=== PATIENT | female | born 1995 | race Caucasian/White ===

== ENCOUNTER 2016-08-26 14:22 | Emergency (ER) | payer BC ==
[2016-08-26 15:03] VITALS: BP 135/85; RESP 18
[2016-08-26] MEDS ORDERED: ONDANSETRON 4 MG/2 ML VIAL IVP STA (15:11)
[2016-08-26] MEDS ORDERED: SODIUM CHLORIDE 0.9% 1,000 ML IV STA (15:11)
[2016-08-26] MEDS ORDERED: SODIUM CHLORIDE 0.9% 2,000 ML IV STA (15:11)
[2016-08-26 15:42] LABS: Basophils % (A) 0 %; CH 30.2; CHCM 35.5; Eosinophils % (A) 0 %; HCT 38.6 % (34.0-46.0); HDW 2.75; HGB 13.4 gm/dL (11.4-16.0); Luc # (Auto) 0.11; Luc % (Auto) 1; Lymphocytes # (A) 1.3 k/uL (1.0-4.8); Lymphocytes % (A) 8 %; MCH 29.8 pg (25.0-35.0); MCHC 34.8 g/dL (31.0-37.0); MCV 85.4 fL (80.0-100.0); Mean Platelet Volume 6.9; Monocytes # (A) 0.6 k/uL (0-1.0); Monocytes % (A) 4 %; Neutrophils # (A) 14.6 k/uL (1.3-7.7); Neutrophils % (A) 88 %; RBC 4.51 m/uL (3.80-5.40); RDW 12.9 % (11.5-15.5); WBC 16.6 k/uL (3.8-10.6); WBC (Perox) 15.82
[2016-08-26 15:50] LABS: Appearance,Urine Clear (Clear); Bacteria,Urine Rare /hpf; Bilirubin,Urine Negative (Negative); Glucose,Urine (UA) Negative (Negative); Ketones,Urine 3+ (Negative); Leukocyte Esterase,Urine Negative (Negative); Mucus,Urine Many /hpf; Nitrite,Urine Negative (Negative); PH, Urine 6.5 (5.0-8.0); Particle Count 11282; Protein,Urine 1+ (Negative); Specific Gravity,Urine 1.026 (1.001-1.035); Squamous Epithelial Cell,Urine 1 /hpf (0-4); UA Billing (MACRO vs. MICRO) MICRO; WBC,Urine 1 /hpf (0-5)
[2016-08-26 15:52] LABS: ALT 51 U/L (9-52); AST 27 U/L (14-36); Alcohol <10 mg/dL; Alkaline Phosphatase 81 U/L (38-126); Amylase 34 U/L (30-110); Anion Gap 14 mmol/L; Blood Urea Nitrogen 12 mg/dL (7-17); Calcium 9.5 mg/dL (8.4-10.2); Carbon Dioxide 20 mmol/L (22-30); Chloride 109 mmol/L (98-107); Glucose 102 mg/dL (74-99); Non-African American GFR(MDRD) >60 (>60 ml/min/1.73 sqM); Sodium 143 mmol/L (137-145); Total Protein 7.2 g/dL (6.3-8.2)
--- NOTE | 2016-08-26 17:10 | ED ---
General Adult HPI - General Chief complaint: Nausea/Vomiting/Diarrhea Stated complaint: vomiting Time Seen by Provider: 08/26/16 15:07 Source: patient, RN notes reviewed Mode of arrival: wheelchair Limitations: no limitations - History of Present Illness Initial comments: 20-year-old female presents with acute nausea and vomiting over the past 12 hours. Patient admits to drinking heavily last night. She didn't black out. She denies diarrhea. Denies fever. She does feel lightheaded. Has past medical history of depression, no other medical history. Denies any blood in the vomit. She estimates the number of episodes of vomiting at 100. Denies abdominal pain. Denies dysuria. Denies headache. - Related Data Home Medications Medication Instructions Recorded Confirmed Apri 28 Day 1 tab PO DAILY 08/26/16 08/26/16 Ibuprofen [Motrin] 800 mg PO DAILY PRN 08/26/16 08/26/16 buPROPion HCL [Wellbutrin XL] 300 mg PO DAILY 08/26/16 08/26/16 Previous Rx's Medication Instructions Recorded Ondansetron Odt [Zofran Odt] 4 mg PO Q8HR PRN #10 tab 08/26/16 Allergies Allergy/AdvReac Type Severity Reaction Status Date / Time acetaminophen [From Vicodin] Allergy Unknown Verified 08/26/16 15:53 cinnamon Allergy Anaphylaxis Verified 08/26/16 15:53 hydrocodone bitartrate Allergy Unknown Verified 08/26/16 15:53 [From Vicodin] Review of Systems ROS Statement: Those systems with pertinent positive or pertinent negative responses have been documented in the HPI. ROS Other: All systems not noted in ROS Statement are negative. Past Medical History Past Medical History: No Reported History Additional Past Medical History / Comment(s): scoliosis History of Any Multi-Drug Resistant Organisms: None Reported Past Surgical History: No Surgical Hx Reported Additional Past Surgical History / Comment(s): oral Past Psychological History: No Psychological Hx Reported Smoking Status: Never smoker Past Alcohol Use History: Occasional Past Drug Use History: None Reported General Exam Limitations: no limitations General appearance: alert, in no apparent distress Head exam: Present: atraumatic, normocephalic Eye exam: Present: normal appearance, PERRL. Absent: scleral icterus, conjunctival injection ENT exam: Present: normal exam, mucous membranes dry Neck exam: Present: normal inspection. Absent: meningismus Respiratory exam: Present: normal lung sounds bilaterally. Absent: respiratory distress, wheezes Cardiovascular Exam: Present: regular rate, normal rhythm GI/Abdominal exam: Present: soft. Absent: distended, tenderness, guarding, rebound Extremities exam: Present: normal inspection, normal capillary refill. Absent: pedal edema Back exam: Present: normal inspection Neurological exam: Present: alert, oriented X3, CN II-XII intact. Absent: motor sensory deficit Psychiatric exam: Present: normal affect, normal mood Skin exam: Present: warm, dry. Absent: cyanosis, diaphoretic Course Vital Signs 08/26/16 15:00 Temperature 98.0 F Pulse Rate 110 H Respiratory 18 Rate Blood Pressure 135/85 O2 Sat by Pulse 96 Oximetry - Reevaluation(s) Reevaluation #1: 08/26/16 17:07 Patient is given 2 L of IV fluids, and reevaluation she is feeling somewhat better. Medical Decision Making - Medical Decision Making 20-year-old female presenting with acute nausea vomiting after drinking heavily. Patient states she had approximately 100 episodes of vomiting most of which were dry heaving. Denies any blood in the vomit. Denies abdominal pain. Denies diarrhea or fever. Laboratory studies revealed mild elevation in white blood cell count, this likely reactive secondary to vomiting. Otherwise laboratory studies are unremarkable including normal electrolytes, there is signs of dehydration with 3+ ketones on urinalysis. Patient is given Zofran, and 2 L IV fluids. On reevaluation she is feeling better. - Lab Data Result diagrams: 08/26/16 15:22 08/26/16 15:22 Lab Results 08/26/16 08/26/16 08/26/16 Range/Units 15:22 15:22 15:22 WBC 16.6 H (3.8-10.6) k/uL RBC 4.51 (3.80-5.40) m/uL Hgb 13.4 (11.4-16.0) gm/dL Hct 38.6 (34.0-46.0) % MCV 85.4 (80.0-100.0) fL MCH 29.8 (25.0-35.0) pg MCHC 34.8 (31.0-37.0) g/dL RDW 12.9 (11.5-15.5) % Plt Count 347 (150-450) k/uL Neutrophils % 88 % Lymphocytes % 8 % Monocytes % 4 % Eosinophils % 0 % Basophils % 0 % Neutrophils # 14.6 H (1.3-7.7) k/uL Lymphocytes # 1.3 (1.0-4.8) k/uL Monocytes # 0.6 (0-1.0) k/uL Eosinophils # 0.0 (0-0.7) k/uL Basophils # 0.0 (0-0.2) k/uL Sodium 143 (137-145) mmol/L Potassium 4.0 (3.5-5.1) mmol/L Chloride 109 H (98-107) mmol/L Carbon Dioxide 20 L (22-30) mmol/L Anion Gap 14 mmol/L BUN 12 (7-17) mg/dL Creatinine 0.80 (0.52-1.04) mg/dL Est GFR (MDRD) Af Amer >60 (>60 ml/min/1.73 sqM) Est GFR (MDRD) Non-Af >60 (>60 ml/min/1.73 sqM) Glucose 102 H (74-99) mg/dL Calcium 9.5 (8.4-10.2) mg/dL Total Bilirubin 1.0 (0.2-1.3) mg/dL AST 27 (14-36) U/L ALT 51 (9-52) U/L Alkaline Phosphatase 81 (38-126) U/L Total Protein 7.2 (6.3-8.2) g/dL Albumin 4.6 (3.5-5.0) g/dL Amylase 34 (30-110) U/L Lipase 22 L (23-300) U/L Urine Color Urine Appearance (Clear) Urine pH (5.0-8.0) Ur Specific [place] (1.001-1.035) Urine Protein (Negative) Urine Glucose (UA) (Negative) Urine Ketones (Negative) Urine Blood (Negative) Urine Nitrite (Negative) Urine Bilirubin (Negative) Urine Urobilinogen (<2.0) mg/dL Ur Leukocyte Esterase (Negative) Urine WBC (0-5) /hpf Ur Squamous Epith Cells (0-4) /hpf Urine Bacteria (None) /hpf Urine Mucus (None) /hpf Urine HCG, Qual Not Detected (Not Detectd) Serum Alcohol <10 mg/dL 08/26/16 Range/Units 15:22 WBC (3.8-10.6) k/uL RBC (3.80-5.40) m/uL Hgb (11.4-16.0) gm/dL Hct (34.0-46.0) % MCV (80.0-100.0) fL MCH (25.0-35.0) pg MCHC (31.0-37.0) g/dL RDW (11.5-15.5) % Plt Count (150-450) k/uL Neutrophils % % Lymphocytes % % Monocytes % % Eosinophils % % Basophils % % Neutrophils # (1.3-7.7) k/uL Lymphocytes # (1.0-4.8) k/uL Monocytes # (0-1.0) k/uL Eosinophils # (0-0.7) k/uL Basophils # (0-0.2) k/uL Sodium (137-145) mmol/L Potassium (3.5-5.1) mmol/L Chloride (98-107) mmol/L Carbon Dioxide (22-30) mmol/L Anion Gap mmol/L BUN (7-17) mg/dL Creatinine (0.52-1.04) mg/dL Est GFR (MDRD) Af Amer (>60 ml/min/1.73 sqM) Est GFR (MDRD) Non-Af (>60 ml/min/1.73 sqM) Glucose (74-99) mg/dL Calcium (8.4-10.2) mg/dL Total Bilirubin (0.2-1.3) mg/dL AST (14-36) U/L ALT (9-52) U/L Alkaline Phosphatase (38-126) U/L Total Protein (6.3-8.2) g/dL Albumin (3.5-5.0) g/dL Amylase (30-110) U/L Lipase (23-300) U/L Urine Color Yellow Urine Appearance Clear (Clear) Urine pH 6.5 (5.0-8.0) Ur Specific [place] 1.026 (1.001-1.035) Urine Protein 1+ H (Negative) Urine Glucose (UA) Negative (Negative) Urine Ketones 3+ H (Negative) Urine Blood Negative (Negative) Urine Nitrite Negative (Negative) Urine Bilirubin Negative (Negative) Urine Urobilinogen 2.0 (<2.0) mg/dL Ur Leukocyte Esterase Negative (Negative) Urine WBC 1 (0-5) /hpf Ur Squamous Epith Cells 1 (0-4) /hpf Urine Bacteria Rare H (None) /hpf Urine Mucus Many H (None) /hpf Urine HCG, Qual (Not Detectd) Serum Alcohol mg/dL Disposition Clinical Impression: Dehydration, Vomiting Disposition: HOME SELF-CARE Condition: Good Instructions: Acute Nausea and Vomiting (ED) Prescriptions: Ondansetron Odt [Zofran Odt] 4 mg PO Q8HR PRN #10 tab PRN Reason: Vomiting Referrals: Boone Flower III, MD [Primary Care Provider] - 1-2 days Time of Disposition: 17:09
[2016-08-26 18:14] VITALS: PULSE 115; TEMP 98.2
== END 2016-08-26 18:13 | disposition home or self-care (01) ==
LOC: EC 14:22
DX: R11.2 Nausea with vomiting, unspecified (principal); E86.0 Dehydration; Z79.3 Long term (current) use of hormonal contraceptives; Z79.899 Other long term (current) drug therapy; Z88.5 Allergy status to narcotic agent; Z88.6 Allergy status to analgesic agent; Z91.018 Allergy to other foods
CPT/HCPCS: 36415; 80053; 82150; 83690; 85025; 81001; 81025; 80320; 99283; 96374; 96361 ×2; J2405

== ENCOUNTER 2017-12-09 23:01 | Emergency (ER) | payer BC ==
[2017-12-10] MEDS ORDERED: SODIUM CHLORIDE 0.9% 1,000 ML IV STA (00:01)
[2017-12-10 00:31] LABS: Basophils % (A) 0 %; Eosinophils # (A) 0.1 k/uL (0-0.7); Eosinophils % (A) 1 %; HCT 43.1 % (34.0-46.0); HGB 14.7 gm/dL (11.4-16.0); Lymphocytes # (A) 2.4 k/uL (1.0-4.8); Lymphocytes % (A) 24 %; MCH 28.9 pg (25.0-35.0); MCHC 34.1 g/dL (31.0-37.0); MCV 84.7 fL (80.0-100.0); Mean Platelet Volume 6.4; Monocytes # (A) 0.6 k/uL (0-1.0); Monocytes % (A) 6 %; Neutrophils # (A) 6.5 k/uL (1.3-7.7); Neutrophils % (A) 66 %; Platelet Count 309 k/uL (150-450); RBC 5.09 m/uL (3.80-5.40); RDW 12.6 % (11.5-15.5); WBC 9.7 k/uL (3.8-10.6)
[2017-12-10 00:39] LABS: Appearance,Urine Clear (Clear); Bacteria,Urine Rare /hpf; Bilirubin,Urine Negative (Negative); Blood,Urine Trace (Negative); Color,Urine Yellow; Glucose,Urine (UA) Negative (Negative); Ketones,Urine Negative (Negative); Leukocyte Esterase,Urine Negative (Negative); Mucus,Urine Rare /hpf; Nitrite,Urine Negative (Negative); PH, Urine 6.5 (5.0-8.0); Protein,Urine Trace (Negative); RBC,Urine 1 /hpf (0-5); Specific Gravity,Urine 1.016 (1.001-1.035); Squamous Epithelial Cell,Urine <1 /hpf (0-4); Urobilinogen,Urine <2.0 mg/dL (<2.0); WBC,Urine 1 /hpf (0-5)
[2017-12-10 00:48] LABS: ALT 25 U/L (9-52); AST 20 U/L (14-36); Albumin 4.8 g/dL (3.5-5.0); Alkaline Phosphatase 72 U/L (38-126); Anion Gap 11 mmol/L; Blood Urea Nitrogen 10 mg/dL (7-17); Calcium 10.2 mg/dL (8.4-10.2); Carbon Dioxide 24 mmol/L (22-30); Chloride 108 mmol/L (98-107); D-Dimer 0.26 mg/L FEU (<0.60); Glucose 84 mg/dL (74-99); INR 1.1 (<1.2); Magnesium 2.2 mg/dL (1.6-2.3); Partial Thromboplastin Time 25.9 sec (22.0-30.0); Potassium 3.9 mmol/L (3.5-5.1); Prothrombin Time 10.4 sec (9.0-12.0); Sodium 143 mmol/L (137-145); Total Bilirubin 0.6 mg/dL (0.2-1.3); Total Protein 7.8 g/dL (6.3-8.2)
[2017-12-10 00:56] LABS: Creatine Kinase 37 U/L (30-135)
[2017-12-10 01:08] LABS: Creatine Kinase MB <0.2 ng/mL (0.0-2.4); Troponin I <0.012 ng/mL (0.000-0.034)
--- NOTE | 2017-12-10 02:26 | ED ---
Arrhythmia/Palpitations HPI - General Chief Complaint: Arrhythmia/Palpitations Stated Complaint: high BP and HR Time Seen by Provider: 12/09/17 23:15 Source: patient Mode of arrival: ambulatory Limitations: no limitations - History of Present Illness Initial Comments: 22 -year-old female patient presents to the emergency department today for evaluation of palpitations and high blood pressure. Patient states that she felt anxious and like her heart was racing earlier at home. States that she did not have anything to be anxious about so she became concerned. States that she did take her blood pressure and found it to be elevated and her heart rate to be elevated. 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 Patient states that her blood pressure was in the 180s over 90s, and her heart rate was fluctuating from 130 to 150. Patient came to the emergency department for evaluation. Patient reports some associated nausea. She denies any dizziness, weakness, chest pain, shortness of breath, abdominal pain, back pain, fever, or chills. States that she does have a history of anxiety but has never had symptoms similar to this before. She denies any alcohol, drug use, or use of stimulants. Denies any caffeine intake today. Patient denies any recent rash, diarrhea, constipation, back pain , hematuria, dysuria, urinary urgency, urinary frequency, headache, visual changes, or any other complaints. Denies any chance of . - Related Data Home Medications Medication Instructions Recorded Confirmed Apri 28 Day 1 tab PO DAILY 08/26/16 08/26/16 Ibuprofen [Motrin] 800 mg PO DAILY PRN 08/26/16 08/26/16 buPROPion HCL [Wellbutrin XL] 300 mg PO DAILY 08/26/16 08/26/16 Previous Rx's Medication Instructions Recorded Ondansetron Odt [Zofran Odt] 4 mg PO Q8HR PRN #10 tab 08/26/16 Allergies Allergy/AdvReac Type Severity Reaction Status Date / Time acetaminophen [From Vicodin] Allergy Unknown Verified 12/09/17 23:06 cinnamon Allergy Anaphylaxis Verified 12/09/17 23:06 hydrocodone bitartrate Allergy Unknown Verified 12/09/17 23:06 [From Vicodin] Review of Systems ROS Statement: Those systems with pertinent positive or pertinent negative responses have been documented in the HPI. ROS Other: All systems not noted in ROS Statement are negative. Past Medical History Past Medical History: No Reported History Additional Past Medical History / Comment(s): scoliosis History of Any Multi-Drug Resistant Organisms: None Reported Past Surgical History: No Surgical Hx Reported Additional Past Surgical History / Comment(s): oral Past Psychological History: No Psychological Hx Reported Smoking Status: Never smoker Past Alcohol Use History: Occasional Past Drug Use History: None Reported General Exam Limitations: no limitations General appearance: alert, in no apparent distress, other (This is a well- developed, well-nourished adult female patient in no acute distress. Vital signs upon presentation are temperature 98.4F, pulse 122, respirations 20, blood pressure 138/100, pulse ox 98% on room air.) Eye exam: Present: normal appearance, PERRL, EOMI. Absent: scleral icterus, conjunctival injection, periorbital swelling ENT exam: Present: normal exam, normal oropharynx, mucous membranes moist Respiratory exam: Present: normal lung sounds bilaterally. Absent: respiratory distress, wheezes, rales, rhonchi, stridor Cardiovascular Exam: Present: normal rhythm, tachycardia, normal heart sounds. Absent: systolic murmur, diastolic murmur, rubs, gallop, clicks GI/Abdominal exam: Present: soft, normal bowel sounds. Absent: distended, tenderness, guarding, rebound, rigid Neurological exam: Present: alert, oriented X3, CN II-XII intact Psychiatric exam: Present: normal affect, normal mood Skin exam: Present: warm, dry, intact, normal color. Absent: rash Course Vital Signs 12/09/17 12/10/17 12/10/17 23:03 00:23 01:08 Temperature 98.4 F Pulse Rate 122 H 91 80 Respiratory 20 18 19 Rate Blood Pressure 138/100 133/91 134/88 O2 Sat by Pulse 98 98 100 Oximetry 12/10/17 02:50 Temperature 98.0 F Pulse Rate 97 Respiratory 18 Rate Blood Pressure 132/84 O2 Sat by Pulse 98 Oximetry EKG Findings - EKG Comments: EKG Findings:: EKG obtained at 2320 shows sinus tachycardia with a ventricular rate of 114, FL interval 140, QRS duration 74, QT 322, QTc 443. No evidence of ST elevation or depression. Medical Decision Making - Medical Decision Making 22-year-old female patient percents to the emergency department today for evaluation of high blood pressure and elevated heart rate. Physical examination is unremarkable. Heart sounds were normal. EKG showed sinus tachycardia at 114. Labs reviewed and are unremarkable. TSH is within normal range. Electrolytes normal. Patient is not . Patient's blood pressure and heart rate did return to normal while in the department. States that she is feeling much improved and would like to be discharged home. She is instructed to follow-up with her primary care physician to discuss Holter monitoring. She is instructed to return immediately for any new, worsening, or concerning symptoms. She verbalizes understanding and agrees with this plan. - Lab Data Result diagrams: 12/10/17 00:10 12/10/17 00:10 Lab Results 12/10/17 12/10/17 12/10/17 Range/Units 00:10 00:10 00:10 WBC 9.7 (3.8-10.6) k/uL RBC 5.09 (3.80-5.40) m/uL Hgb 14.7 (11.4-16.0) gm/dL Hct 43.1 (34.0-46.0) % MCV 84.7 (80.0-100.0) fL MCH 28.9 (25.0-35.0) pg MCHC 34.1 (31.0-37.0) g/dL RDW 12.6 (11.5-15.5) % Plt Count 309 (150-450) k/uL Neutrophils % 66 % Lymphocytes % 24 % Monocytes % 6 % Eosinophils % 1 % Basophils % 0 % Neutrophils # 6.5 (1.3-7.7) k/uL Lymphocytes # 2.4 (1.0-4.8) k/uL Monocytes # 0.6 (0-1.0) k/uL Eosinophils # 0.1 (0-0.7) k/uL Basophils # 0.0 (0-0.2) k/uL PT (9.0-12.0) sec INR (<1.2) APTT (22.0-30.0) sec D-Dimer (<0.60) mg/L FEU Sodium 143 (137-145) mmol/L Potassium 3.9 (3.5-5.1) mmol/L Chloride 108 H (98-107) mmol/L Carbon Dioxide 24 (22-30) mmol/L Anion Gap 11 mmol/L BUN 10 (7-17) mg/dL Creatinine 1.00 (0.52-1.04) mg/dL Est GFR (CKD-EPI)AfAm >90 (>60 ml/min/1.73 sqM) Est GFR (CKD-EPI)NonAf 80 (>60 ml/min/1.73 sqM) Glucose 84 (74-99) mg/dL Calcium 10.2 (8.4-10.2) mg/dL Magnesium 2.2 (1.6-2.3) mg/dL Total Bilirubin 0.6 (0.2-1.3) mg/dL AST 20 (14-36) U/L ALT 25 (9-52) U/L Alkaline Phosphatase 72 (38-126) U/L Total Creatine Kinase 37 (30-135) U/L CK-MB (CK-2) <0.2 (0.0-2.4) ng/mL CK-MB (CK-2) Rel Index Troponin I <0.012 (0.000-0.034) ng/mL Total Protein 7.8 (6.3-8.2) g/dL Albumin 4.8 (3.5-5.0) g/dL TSH 3.570 (0.465-4.680) mIU/L Urine Color Urine Appearance (Clear) Urine pH (5.0-8.0) Ur Specific [place] (1.001-1.035) Urine Protein (Negative) Urine Glucose (UA) (Negative) Urine Ketones (Negative) Urine Blood (Negative) Urine Nitrite (Negative) Urine Bilirubin (Negative) Urine Urobilinogen (<2.0) mg/dL Ur Leukocyte Esterase (Negative) Urine RBC (0-5) /hpf Urine WBC (0-5) /hpf Ur Squamous Epith Cells (0-4) /hpf Urine Bacteria (None) /hpf Urine Mucus (None) /hpf Urine HCG, Qual (Not Detectd) 12/10/17 12/10/17 12/10/17 Range/Units 00:10 00:10 00:10 WBC (3.8-10.6) k/uL RBC (3.80-5.40) m/uL Hgb (11.4-16.0) gm/dL Hct (34.0-46.0) % MCV (80.0-100.0) fL MCH (25.0-35.0) pg MCHC (31.0-37.0) g/dL RDW (11.5-15.5) % Plt Count (150-450) k/uL Neutrophils % % Lymphocytes % % Monocytes % % Eosinophils % % Basophils % % Neutrophils # (1.3-7.7) k/uL Lymphocytes # (1.0-4.8) k/uL Monocytes # (0-1.0) k/uL Eosinophils # (0-0.7) k/uL Basophils # (0-0.2) k/uL PT 10.4 (9.0-12.0) sec INR 1.1 (<1.2) APTT 25.9 (22.0-30.0) sec D-Dimer 0.26 (<0.60) mg/L FEU Sodium (137-145) mmol/L Potassium (3.5-5.1) mmol/L Chloride (98-107) mmol/L Carbon Dioxide (22-30) mmol/L Anion Gap mmol/L BUN (7-17) mg/dL Creatinine (0.52-1.04) mg/dL Est GFR (CKD-EPI)AfAm (>60 ml/min/1.73 sqM) Est GFR (CKD-EPI)NonAf (>60 ml/min/1.73 sqM) Glucose (74-99) mg/dL Calcium (8.4-10.2) mg/dL Magnesium (1.6-2.3) mg/dL Total Bilirubin (0.2-1.3) mg/dL AST (14-36) U/L ALT (9-52) U/L Alkaline Phosphatase (38-126) U/L Total Creatine Kinase (30-135) U/L CK-MB (CK-2) (0.0-2.4) ng/mL CK-MB (CK-2) Rel Index Troponin I (0.000-0.034) ng/mL Total Protein (6.3-8.2) g/dL Albumin (3.5-5.0) g/dL TSH (0.465-4.680) mIU/L Urine Color Yellow Urine Appearance Clear (Clear) Urine pH 6.5 (5.0-8.0) Ur Specific [place] 1.016 (1.001-1.035) Urine Protein Trace H (Negative) Urine Glucose (UA) Negative (Negative) Urine Ketones Negative (Negative) Urine Blood Trace H (Negative) Urine Nitrite Negative (Negative) Urine Bilirubin Negative (Negative) Urine Urobilinogen <2.0 (<2.0) mg/dL Ur Leukocyte Esterase Negative (Negative) Urine RBC 1 (0-5) /hpf Urine WBC 1 (0-5) /hpf Ur Squamous Epith Cells <1 (0-4) /hpf Urine Bacteria Rare H (None) /hpf Urine Mucus Rare H (None) /hpf Urine HCG, Qual Not Detected (Not Detectd) Disposition Clinical Impression: Palpitations Disposition: HOME SELF-CARE Condition: Good Instructions: Heart Palpitations (ED) Additional Instructions: Increase fluids. Rest. Follow-up with your primary care physician to discuss symptoms and possible referral to cardiology. Return immediately for any new, worsening, or concerning symptoms. Is patient prescribed a controlled substance at d/c from ED?: No Referrals: Boone Flower III, MD [Primary Care Provider] - 1-2 days Time of Disposition: 02:26
[2017-12-10 02:51] VITALS: BP 132/84; PULSE 97; RESP 18; TEMP 98
== END 2017-12-10 02:51 | disposition home or self-care (01) ==
LOC: EC 23:01
DX: R00.2 Palpitations (principal); R11.0 Nausea; R00.0 Tachycardia, unspecified; F41.9 Anxiety disorder, unspecified; Z79.3 Long term (current) use of hormonal contraceptives; Z79.899 Other long term (current) drug therapy; Z88.6 Allergy status to analgesic agent; Z88.5 Allergy status to narcotic agent; Z91.018 Allergy to other foods
CPT/HCPCS: 36415; 80053; 81001; 81025; 82550; 82553; 83735; 84443; 84484; 85025; 85379; 85610; 85730; 93005; 96360; 99285

== ENCOUNTER 2018-03-28 13:52 | Emergency (ER) | payer OTHER, BC ==
[2018-03-28 13:58] VITALS: TEMP 98.8
[2018-03-28] MEDS ORDERED: ONDANSETRON 4 MG/2 ML VIAL IVP STA (14:18)
[2018-03-28] MEDS ORDERED: HYDROmorphone 0.5 MG/0.5 ML SYRINGE IVP STA ×2 (14:18→17:42)
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
[2018-03-28 15:18] LABS: Basophils % (A) 0 %; Eosinophils # (A) 0.1 k/uL (0-0.7); Eosinophils % (A) 1 %; HCT 43.9 % (34.0-46.0); HGB 14.7 gm/dL (11.4-16.0); Lymphocytes # (A) 1.8 k/uL (1.0-4.8); Lymphocytes % (A) 17 %; MCHC 33.5 g/dL (31.0-37.0); MCV 86.7 fL (80.0-100.0); Mean Platelet Volume 6.9; Monocytes # (A) 0.6 k/uL (0-1.0); Monocytes % (A) 5 %; Neutrophils # (A) 8.3 k/uL (1.3-7.7); Neutrophils % (A) 76 %; Platelet Count 312 k/uL (150-450); RBC 5.06 m/uL (3.80-5.40); RDW 12.9 % (11.5-15.5); WBC 10.9 k/uL (3.8-10.6)
[2018-03-28 15:20] LABS: Appearance,Urine Cloudy (Clear); Bacteria,Urine Rare /hpf; Bilirubin,Urine Negative (Negative); Blood,Urine Negative (Negative); Color,Urine Yellow; Glucose,Urine (UA) Negative (Negative); Hyaline Casts,Urine 2 /lpf (0-2); Ketones,Urine Negative (Negative); Leukocyte Esterase,Urine Small (Negative); Mucus,Urine Few /hpf; Nitrite,Urine Negative (Negative); PH, Urine 7.5 (5.0-8.0); Protein,Urine Trace (Negative); RBC,Urine 6 /hpf (0-5); Specific Gravity,Urine 1.015 (1.001-1.035); Squamous Epithelial Cell,Urine 5 /hpf (0-4); Urobilinogen,Urine <2.0 mg/dL (<2.0); WBC,Urine 7 /hpf (0-5)
[2018-03-28 15:26] LABS: Partial Thromboplastin Time 26.8 sec (22.0-30.0); Prothrombin Time 10.9 sec (9.0-12.0)
[2018-03-28 15:28] LABS: ALT 37 U/L (9-52); AST 21 U/L (14-36); Albumin 4.9 g/dL (3.5-5.0); Alkaline Phosphatase 81 U/L (38-126); Anion Gap 10 mmol/L; Blood Urea Nitrogen 10 mg/dL (7-17); Calcium 10.1 mg/dL (8.4-10.2); Carbon Dioxide 24 mmol/L (22-30); Chloride 106 mmol/L (98-107); Glucose 100 mg/dL (74-99); Potassium 4.2 mmol/L (3.5-5.1); Sodium 140 mmol/L (137-145); Total Bilirubin 1.3 mg/dL (0.2-1.3); Total Protein 7.6 g/dL (6.3-8.2)
--- NOTE | 2018-03-28 15:28 | XR ---
EXAMINATION TYPE: XR pelvis AP view DATE OF EXAM: 03/28/2018 CLINICAL HISTORY: pain TECHNIQUE: Single view the pelvis is submitted. FINDINGS: No evidence for fracture, dislocation or bony lesion. Joint spaces are well-preserved. S I joints appear symmetric. IMPRESSION: 1. No acute fracture or dislocation seen. ICD 10 NO FRACTURE, INITIAL EVALUATION
[2018-03-28 15:32] LABS: Creatine Kinase 76 U/L (30-135)
--- NOTE | 2018-03-28 15:32 | XR ---
EXAMINATION TYPE: XR chest 1V portable DATE OF EXAM: 03/28/2018 COMPARISON: September 06, 2013 HISTORY: Chest pain TECHNIQUE: Single frontal view of the chest is obtained. FINDINGS: There is no focal air space opacity, pleural effusion, or pneumothorax seen. The cardiac silhouette size is within normal limits. The osseous structures are intact. Severe S-shaped scoliosis of the thoracolumbar spine. IMPRESSION: 1. No acute process.
[2018-03-28 15:44] LABS: Creatine Kinase MB 0.4 ng/mL (0.0-2.4); Troponin I <0.012 ng/mL (0.000-0.034)
--- NOTE | 2018-03-28 16:27 | XR ---
EXAMINATION TYPE: XR knee complete RT DATE OF EXAM: 03/28/2018 CLINICAL HISTORY: pain TECHNIQUE: Three views of the right knee are obtained. COMPARISON: None. FINDINGS: There is no acute fracture/dislocation. The tri-compartment joint spaces appear within no rmal limits. The overlying soft tissue appears unremarkable. IMPRESSION: There is no acute fracture or dislocation.ICD 10 NO FRACTURE, INITIAL EVALUATION
--- NOTE | 2018-03-28 16:27 | XR ---
EXAMINATION TYPE: XR wrist complete LT DATE OF EXAM: 03/28/2018 CLINICAL HISTORY: pain TECHNIQUE: Frontal, lateral and oblique images of the left wrist are obtained. Scaphoid view is also submitted. COMPARISON: None. FINDINGS: There is no acute fracture/dislocation evident. The joint spaces appear within normal caceres its. The overlying soft tissue appears unremarkable. IMPRESSION: There is no acute fracture or dislocation seen. ICD 10 NO FRACTURE, INITIAL EVALUATION
[2018-03-28] MEDS ORDERED: LIDOCAINE 1% INJ 10MG/ML (20 ML MDV) SQ ONE (16:47)
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
[2018-03-28 17:19] VITALS: RESP 13
[2018-03-28 17:53] VITALS: BP 124/84; PULSE 84
== END 2018-03-28 17:51 | disposition home or self-care (01) ==
LOC: EC 13:52
DX: S81.011A Laceration without foreign body, right knee, initial encounter (principal); S30.1XXA Contusion of abdominal wall, initial encounter; R07.89 Other chest pain; Z79.899 Other long term (current) drug therapy; Z88.5 Allergy status to narcotic agent; V47.5XXA Car driver injured in collision with fixed or stationary object in traffic accident, initial encounter; Y92.410 Unspecified street and highway as the place of occurrence of the external cause
CPT/HCPCS: 36415; 93005; 86900; 86901; 80053; 82550; 82553; 84484; 85025; 85610; 85730; 86850; 81001; 72170; 73110; 73562; 71045; 71260; 74177; 99285; 96374; 96375; 96376; 96372; J2405; J2001; J1170; Q9967

== ENCOUNTER → 2018-04-23 | Outpatient (CLI) | payer BC ==
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
== END | disposition home or self-care (01) ==
LOC: RADUSWWP 07:06
PROVIDERS: ATTEND Family Medicine
DX: N64.4 Mastodynia (principal); N63.10 Unspecified lump in the right breast, unspecified quadrant

== ENCOUNTER → 2018-06-13 | Outpatient (CLI) | payer OTHER, BC ==
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
== END | disposition home or self-care (01) ==
LOC: RADXRMAIN 17:13
PROVIDERS: ATTEND Nurse Practitioner Family
DX: M79.642 Pain in left hand (principal)